=== PATIENT | female | born 1990 | race Two or more races ===

== ENCOUNTER 2019-09-24 17:53 | Emergency (ER) | payer MEDICAID ==
--- NOTE | 2019-09-24 18:28 | NUR ---
PT A&OX4, RESP EVEN & UNLABORED, SPEECH CLEAR, SKIN WNL. C/O BAD DIARRHEA, VOMITING, CHILLS ALL DAY, TIRED, [place]. SX STARTED YESTERDAY. TYLENOL TAKEN FOR SX (LAST DOSE: 1330).
--- NOTE | 2019-09-24 18:31 | NUR ---
DR ISAAC BS FOR EXAM
[2019-09-24] MEDS ORDERED: KETOROLAC 30 MG/1 ML ONE (18:58)
[2019-09-24] MEDS ORDERED: ONDANSETRON ODT 4 MG ONE (18:58)
[2019-09-24] MEDS ORDERED: ONDANSETRON ODT 4 MG PO ONE (19:00)
[2019-09-24] MEDS ORDERED: KETOROLAC 30 MG/1 ML IM/IV ONE (19:00)
--- NOTE | 2019-09-24 19:05 | NUR ---
ZOFRAN PO AND TORADOL IM GIVEN PER EMAR.
[2019-09-24 19:42] LABS: RAPID INFLUENZA A Negative (Negative); RAPID INFLUENZA B Negative (Negative)
[2019-09-24 20:50] VITALS: BP 96/52
== END 2019-09-24 21:09 | disposition home or self-care (01) ==
LOC: ED 18:50
DX: R11.2 Nausea with vomiting, unspecified (principal); R19.7 Diarrhea, unspecified; B34.9 Viral infection, unspecified; E11.9 Type 2 diabetes mellitus without complications; F17.200 Nicotine dependence, unspecified, uncomplicated; Z90.49 Acquired absence of other specified parts of digestive tract; Z90.710 Acquired absence of both cervix and uterus; Z98.51 Tubal ligation status
CPT/HCPCS: 87400; 96372; 99283; J1885; Q0162